=== PATIENT | female | born 1960 | race Caucasian/White ===

== ENCOUNTER 2023-06-26 17:37 | Emergency (ER) | payer OTHER ==
[~2023-06-26] VITALS: Ht 165.1 cm; Wt 79.4 kg
[2023-06-26 18:38] VITALS: BP 180/110; PULSE 98; RESP 18; TEMP 97.3; O2SAT 98
[2023-06-26] MEDS ORDERED: KETOROLAC 30 MG/ML VIAL IM ONE (21:05)
[2023-06-26] MEDS ORDERED: ACET-10509 PO (21:05)
[2023-06-26] MEDS ORDERED: DEXAMETHASONE 10 MG/ML VIAL IM ONE (21:05)
[2023-06-26] MEDS ORDERED: AMOX500C25 PO (21:05)
[2023-06-26 21:25] VITALS: BP 155/88; PULSE 87; RESP 16; TEMP 97.3; O2SAT 99
--- NOTE | 2023-06-26 21:25 | NUR ---
PT OK TO DC PER DR. PALACIOS. PT DC PRIOR TO TIME OF REASSESSMENT FOR PAIN. PT 02/04
--- NOTE | 2023-06-26 21:25 | NUR ---
Patient discharged with v/s stable. Written and verbal after care instructions given and explained. Patient alert, oriented and verbalized understanding of instructions GIVEN BY SHARON PRINCE Ambulatory with steady gait. All questions addressed prior to discharge. ID band removed. Patient advised to follow up with PMD. Rx of TYLENOL, AMOXICILLIN given. Patient educated on indication of medication including possible reaction and side effects. Opportunity to ask questions provided and answered.
== END 2023-06-26 21:25 | disposition home or self-care (01) ==
LOC: MED 17:37
DX: J02.0 Streptococcal pharyngitis (principal); R50.9 Fever, unspecified; Z79.899 Other long term (current) drug therapy
CPT/HCPCS: 96372; 99284; J1100; J1885